=== PATIENT | female | born 1990 | race African-American/Black ===

== ENCOUNTER 2018-12-06 20:17 | Inpatient (IN) ==
--- NOTE | 2018-12-06 20:41 | PROVIDER DOCUMENTATION ---
HPI-General Adult - General Chief Complaint: Abdominal Pain Stated Complaint: PREG/CRAMPING Time Seen by Provider: 12/06/18 20:31 Source: patient Allergies/Adverse Reactions: Patient Allergies Allergy/AdvReac Type Severity Reaction Status Date / Time No Known Allergies Allergy Verified 11/27/18 08:14 Home Medications: Home Medication List Medication Instructions Recorded Confirmed Last Taken Type NK [No Home Medications] 11/27/18 11/27/18 Unknown History - History of Present Illness -Gen Adult Nature of Presenting Problems: Pt. is 28 yof that presents with abd cramping and reports she had a positive pregnacy test 3 weeks ago. Pt. reports having a tubal 6 years ago. Pt. states she has some nausea and denies any other complaints. Location of Pain/Injury: reports: pelvis. denies: none, head, face, mouth, neck, chest, upper extremity, hand(s), abdomen, back, genitalia, lower e xtremity, feet, upper body, lower body, generalized, other Pain Radiation: reports: no radiation. denies: arm(s), back, buttocks, chest, epigastric, feet, groin, jaw, flank (L), legs (lower), LLQ, LUQ, neck, periumbilical, flank (R), RLQ, RUQ, shoulder(s), scapula, scrotal, sternal notch, suprapubic, legs (upper), urethral, vaginal, other Quality of Pain: reports: cramping. denies: burning, pressure, throbbing Severity: reports: mild. denies: moderate, severe Onset/Duration: reports: gradual, 24 hours ago Timing: reports: still present. denies: gone now, changing over time, getting worse Context/Activities at Onset: reports: none. denies: light activity, moderate activity, vigorous activity, recent emotional stress, recent physical stress, recent trauma history, possible bad food, cold exposure, eating, out of country travel, rest, sleep, sexual activity, other Modifying Factors: improves with: nothing. worse with: analgesics, antacids, breathing, cold/heat therapy, coughing, defecating, eating, exercise, immobilization, lying down, massage, movement, other medication, palpation, rest, urinating, vomiting, other Associated Symptoms: reports: nausea, other (abd pain). denies: denies symptoms, anxiety, arm pain, back/neck pain, chest pain, constipation, cough, diaphoresis, diarrhea, dizziness, EENT symptoms, fatigue, fever/chills, genitourinary problems, headaches, heartburn, joint pain, loss of appetite, malaise, muscle aches, sinus congestion/drainage, rash, seizure, shortness of breath, sensory/motor loss, pain with inspiration, swelling/mass in abdomen, syncope, vomiting, weakness, trouble walking Similar Symptoms Previously?: Yes Recently seen or treated by another doctor?: No Review of Systems - Adult - REVIEW OF SYSTEMS - ADULT Constitutional: reports: no symptoms reported Eyes: reports: no symptoms reported Ears, Nose, Mouth & Throat: reports: no symptoms reported Cardiovascular: reports: no symptoms reported Respiratory: reports: no symptoms reported Gastrointestinal: reports: see HPI, abdominal pain, nausea. denies: hematemesis, diarrhea, difficulty swallowing, vomiting Genitourinary: reports: no symptoms reported. denies: see HPI, dysuria, discharge, frequency, flank pain, frequent UTI's, hematuria, hesitency, incontinence, urinary retention, urgency, other Musculoskeletal: reports: no symptoms reported Integumentary: reports: no symptoms reported Neurological: reports: no symptoms reported Psychiatric: reports: no symptoms reported Past History - Adult - PAST MEDICAL HISTORY-ADULT Review of Records: reports: Old Records Reviewed, Nursing Assessment Review, Medications Reviewed, Social history reviewed & non-contributory. Major Childhood Illnesses: reports: denies history - PRIOR SURGERIES/PROCEDURES Surgical/Procedure History: reports: BTL - IMMUNIZATION STATUS Childhood Immunizations: See Nurse Assessment Flu Vaccine: See Nurse Assessment - FAMILY HISTORY Family History: reviewed, not pertinent - SOCIAL HISTORY Smoking: denies Physical Exam-General - PHYSICAL EXAM-ADULT Initial Vital Signs Reviewed: Yes - CONSTITUTIONAL General Appearance: alert, mild distress. negative: anxious, obtunded, combative - EYES Eyes: PERRL/EOMI, pink conjunctivae - HEAD, EARS, NOSE, MOUTH & THROAT HENMT: normocephalic/atraumatic, moist mucous membranes - NECK Neck: non-tender, full range of motion, supple, normal inspection - RESPIRATORY Respiratory: lungs clear, normal breath sounds - CARDIOVASCULAR Cardiovascular: normal peripheral pulses, regular rate, rhythm - GASTROINTESTINAL (ABDOMEN) Abdominal Exam: normal bowel sounds, soft, tenderness. negative: distended, guarding, rigid, rebound - LYMPHATIC Lymphatic: no adenopathy - MUSCULOSKELETAL Back Exam: normal inspection, no CVA tenderness Extremity: normal range of motion, non-tender, normal gait, normal inspection Peripheral Pulses: radial (R): 2+, radial (L): 2+ - SKIN Integumentary: normal color, normal turgor, warm/dry. negative: cyanosis, mottled, zoster-like rash - NEUROLOGIC Neurologic: grossly normal, no motor/sensory deficits - PSYCHIATRIC Psych/Mental Status: normal mood/affect, normal thought content, normal thought process, oriented x 3. negative: anxious, paranoid, tearful Progress - PLAN OF CARE/RESULTS Progress/Plan/Lab Results: Vital Signs - 8 hr 12/06/18 20:29 Temperature 99.1 F Pulse Rate 71 Respiratory Rate 20 Blood Pressure 116/73 O2 Sat by Pulse Oximetry 100 Orders Category Date Time Status ED: Urine Bedside ORDERED Care 12/06/18 20:32 Active CBC WITH ELECTRONIC DIFF [HEME] Stat Lab 12/06/18 20:31 Uncollected QUANT TEST Stat Lab 12/06/18 20:31 Uncollected RHOGAM WORKUP [BBK] Stat Lab 12/06/18 20:32 Uncollected URINALYSIS W/POSS RFLX CULT [URINALYSIS] Stat Lab 12/06/18 20:32 Uncollected Laboratory Tests 12/06/18 12/06/18 12/06/18 21:18 21:32 21:32 WBC 10.98 H RBC 4.70 Hgb 8.5 L Hct 28.4 L MCV 60.4 L MCH 18.1 L MCHC 29.9 L RDW Std Deviation 18.6 H Plt Count 265 MPV Not Reportable Immature Gran % (Auto) 0.2 Neut % (Auto) 77.7 H Lymph % (Auto) 16.8 L Baldwin % (Auto) 4.5 Eos % (Auto) 0.4 Baso % (Auto) 0.4 Immature Gran # (Auto) 0.02 Neut # (Auto) 8.54 H Lymph # (Auto) 1.85 Baldwin # (Auto) 0.49 Eos # (Auto) 0.04 Baso # (Auto) 0.04 Ser , Semi-Qnt 3799.0 Urine Source CLEAN CATCH Urine Color YELLOW Urine Turbidity HAZY Urine pH 6.5 Ur Specific [place] 1.038 Urine Protein 30 A Ur Glucose (Stick) NEGATIVE Ur Ketones (Stick) 10 A Urine Blood NEGATIVE Urine Nitrite NEGATIVE Urine Bilirubin NEGATIVE Urobilinogen Dipstick 2 A Urine Leukocytes SMALL A Urine WBC (Auto) TNTC A Urine RBC (Auto) <10 U Epithel Cells (Auto) <10 Urine Bacteria (Auto) 1+ Dr. Archibald at bedside for evaluation. Result Diagrams: 12/06/18 21:32 - CONSULTS/PCP/HOSPITALIST Notification #1 *Consult/PCP/Hospitalist*: Dr. Archibald Time Discussed: 23:02 Reason/Comments: Consult Consult Disposition: Will see in ED (After evaluating the patient, Dr. Archibald will admit and take the patient to the OR in the morning.) Departure - Departure Date of Disposition Decision: 12/07/18 Time of Disposition Decision: 00:01 DIAGNOSIS: of unknown anatomic location Disposition: ADMITTED INPATIENT 09 Certified Medical Emergency: Emergent Condition: Serious Referrals and Follow-Ups: None,PCP [Primary Care Provider] - - Critical Care Note This patient required my direct & personal management of CC.: No Attestation - Physician/ [place] Attestation Patient care was provided by Advanced Practice Provider:: Yes Advanced Practice Provider:: Maia Espinoza Advanced Practice Provider documentation review:: The Mid-level provider documentation, treatment plan and medical decision making was reviewed by the physician who agrees with all treatment and medical decision making by the [facility]. The physician spent face to face time with patient:: No Advanced Practice Provider documentation review:: Supervising physician onsite and consulted in the evaluation and care of this patient. The physician did not have a face to face encounter with the patient.
[2018-12-06 21:36] LABS: URINE SOURCE CLEAN CATCH
[2018-12-06 22:12] LABS: BILIRUBIN URINE NEGATIVE (NEGATIVE); BLOOD URINE NEGATIVE (NEGATIVE); COLOR YELLOW; GLUCOSE URINE NEGATIVE (NEGATIVE); KETONE URINE 10 mg/dL (NEGATIVE); LEUKOCYTES URINE SMALL (NEGATIVE); NITRITE URINE NEGATIVE (NEGATIVE); PH URINE 6.5; PROTEIN URINE 30 mg/dL (NEGATIVE); SP GRAVITY URINE 1.038; TURBIDITY URINE HAZY (CLEAR); UROBILINOGEN URINE 2 mg/dL (NORMAL)
[2018-12-06 22:28] LABS: BASO# 0.04 X1000 (0.0-0.2); BASO% 0.4 % (0.0-0.8); EOS# 0.04 X1000 (0.0-0.7); EOS% 0.4 % (0.0-10.0); HEMATOCRIT 28.4 % (37.0-47.0); HEMOGLOBIN 8.5 g/dL (12.0-16.0); IMM GRAN# 0.02 X1000 (0.0-0.04); IMM GRAN% 0.2 % (0.0-0.5); LYMPH# 1.85 X1000 (1.2-3.4); LYMPH% 16.8 % (20.5-51.1); MCH 18.1 PG (27-31); MCHC 29.9 g/dL (33-37); MCV 60.4 FL (81-99); MONO# 0.49 X1000 (0.11-0.59); MONO% 4.5 % (1.7-9.3); NEUT# 8.54 X1000 (1.4-6.5); NEUT% 77.7 % (42.2-75.2); PLT 265 X1000 (130-400); RDW 18.6 % (11.5-14.5); WBC 10.98 X1000 (4.8-10.8)
[2018-12-06 22:29] LABS: UR EPITHELIAL CELLS <10 /HPF (<10); URINE BACTERIA 1+ /HPF; URINE RBC <10 /HPF (<10); URINE WBC TNTC /HPF (<10)
[2018-12-07] MEDS ORDERED: ZOFRAN IV PRN ×2 (00:02→00:27)
[2018-12-07] MEDS ORDERED: NS 1,000 ML IV ONE (00:02)
[2018-12-07] MEDS ORDERED: MORPHINE IV PRN (00:02)
[2018-12-07] MEDS ORDERED: TYLENOL PO PRN (00:35)
--- NOTE | 2018-12-07 00:51 | HISTORY AND PHYSICAL ---
CHIEF COMPLAINT: Acute lower abdominal midline pain. HISTORY OF PRESENT ILLNESS: A 28-year-old G5, P3-0-1-3 at 5 weeks and 5 days by LMP (10/27/2018), presented to the ED with acute lower abdominal cramping x1 day. The patient reports she had severe cramping that persisted during the daytime. The cramping was described as sharp and nonradiating. The patient reports of positional change as an alleviating factor. The patient reports her pain worsens with prolonged standing. The patient also had associated nausea and vomiting x2. episodes today. Patient denied of vaginal bleeding. The patient has a history of a prior tubal ligation. The patient was seen in the ED on 11/27/2018 due to a positive test. The patient denied of any fever, chills, shortness of breath, or chest pain. The patient denied of any dysuria, hematuria, or vaginal bleeding. The patient denied of any constipation, diarrhea, hematochezia, or melena. PAST SURGERY HISTORY: Denied. PAST SURGICAL HISTORY: bilateral tubal ligation. OBSTETRICAL HISTORY: G5, P3-0-1-3. History of a miscarriage/prior stillbirth and 3 vaginal deliveries. GYNECOLOGIC HISTORY: Regular menses. Denied of STDs or HIV. Reports of 1 abnormal Pap smear, but no prior LEEP or cryotherapy. Last Pap smear reported to be last year and unremarkable. MEDICATIONS: Denied. ALLERGIES: No known drug allergies. SOCIAL HISTORY: Denied of any tobacco, alcohol, or illicit drug. FAMILY HISTORY: Denied. REVIEW OF SYSTEMS: Positive for abdominal pain, nausea and vomiting. PHYSICAL EXAMINATION: VITAL SIGNS: Temperature 99.1 degrees, pulse 71, respirations 20, blood pressure 116/73, SpO2 of 100% on room air. Weight 76.2 kg, height 5 feet 2 inches. GENERAL: No apparent distress. Alert and oriented x3. CARDIOVASCULAR: Regular rate and rhythm. PULMONARY: Clear to auscultation bilaterally. No rhonchi, wheezing or rales. ABDOMEN: Soft, some mild to moderate midline lower abdominal tenderness to palpation. No rebound tenderness. No guarding. Active bowel sounds EXTREMITIES: No lower extremity tenderness to palpation. PELVIC: Normal female external genitalia. No blood noted in vaginal vault. Cervix grossly normal appearing and closed. No adnexal tenderness to palpation. Positive cervical motion tenderness. A posterior mass or nodule palpated just inferior to the cervix, possibly posterior cul-de-sac. LABORATORY: On 12/06/2018: white blood cell count 10.98, hemoglobin 8.5, hematocrit 28.4, platelet 265,000. HCG quantitative 3799. On 11/27/2018: hemoglobin 8.9, hematocrit 30.1, platelet 257,000. HCG quant 121. IMAGING: Pelvic ultrasound, anteverted uterus. Uterus measures 9.7 x 0.2 x 6.7 cm. No discrete mass. Endometrium measures 6 mm. No intrauterine gestational sac or free fluid seen. No intrauterine or ectopic . ASSESSMENT AND PLAN: A 28-year-old G5, P3-0-1-3 at 5 weeks and 5 days by last menstrual period with: 1. of unknown location. - Given the patient's history of present illness of acute abdominal pain with a quantitative hCG of approximately 3800 (above the conservative discriminatory zone), increased from 11/27/2018, and no intrauterine seen on ultrasound, there is suspicion that the patient has an ectopic , especially considering patient had a prior tubal ligation. - The ultrasound imaging was reviewed by myself personally with no definitive findings of the location of the current . It may be possible that patient may have a heterotopic , but this is a rare finding. Given patient's cervical motion tenderness and what felt to be a small mass just inferior to the cervix, there is a possibility that the patient may have a cervical ectopic or an ectopic in the posterior cul-de-sac. - Given that patient had failed tubal ligation and patient being anemic with a hemoglobin of 8.5 and hematocrit of 28.4 (although not significantly changed since the patient was seen on 11/27/2018), I discussed with patient recommendation for surgical management via a diagnostic laparoscopy with possible bilateral salpingectomy. I discussed with patient that if there is no ectopic seen on laparoscopy, then we will consider using methotrexate, especially if suspecting a cervical ectopic (vs continued observation) . I discussed the risks and benefits of methotrexate use, need for frequent hcg lab draws, and reliable transportation. - Risks and benefits of a diagnostic laparoscopy discussed with patient in depth including, but not limited to, bleeding, infection, injury to surrounding organs, postoperative pain, risk of hysterectomy, disability and/or . The patient expressed understanding. All questions answered. The patient desires to proceed with the recommendation. - Will keep the patient NPO and proceed with urgent laparoscopy. This will be performed by the dayshift [facility]. 2. Anemia. - Will hold 2 units of packed red blood cells. 3. Rh positive. No RhoGAM indicated. [facility]
[2018-12-07 00:53] LABS: AGAP 10; ALB/GLOB RATIO 1.1; ALBUMIN 4.2 g/dL (3.5-5.0); ALKALINE PHOSPHATASE 64 U/L (32-104); BUN 12 mg/dL (8-22); CALCIUM 9.1 mg/dL (8.8-10.2); CHLORIDE 104 mmol/L (98-107); COSMO 276; CREATININE 0.7 mg/dL (0.5-0.9); ESTIMATED GFR > 60; GLUCOSE 109 mg/dL (70-104); GOT 26 U/L (10-30); GPT 20 U/L (10-36); POTASSIUM 4.1 mmol/L (3.5-5.1); SODIUM 138 mmol/L (136-145); TCO2 24 mmol/L (25-35); TOTAL BILIRUBIN 0.15 mg/dL (0.20-1.00)
--- NOTE | 2018-12-07 07:28 | Diag Imaging Result Doc PS360 ---
EXAM: US PELVIC NON-OB COMPLETE 12/06/2018 HISTORY: abd pain with TECHNIQUE: Transabdominal COMMENT: The uterus measures 9.7 x 8.2 x 6.7 cm. There is a 6 mm endometrial stripe. There is free fluid in the cul-de-sac. The uterine fundus is somewhat bulky and inhomogeneous without discrete masses. This appearance was also present on 11/27/2018. There are no earlier studies. The ovaries are not enlarged. There is color Doppler flow in both ovaries. IMPRESSION: No evidence of intrauterine gestation. Free pelvic fluid. Although no ectopic gestational sac is identified, the possibility of ectopic cannot be excluded and correlation with serial beta-hCG levels is recommended. Electronically signed by Mat Morales 12/07/2018 7:26 AM
[2018-12-07] MEDS ORDERED: DIPRIVAN 1% ONE ×2 (09:18→10:34)
[2018-12-07] MEDS ORDERED: NORCURON ONE (09:20)
[2018-12-07] MEDS ORDERED: STERILE WATER INJ. ONE (09:20)
[2018-12-07] MEDS ORDERED: VERSED ONE (10:33)
[2018-12-07] MEDS ORDERED: FENTANYL ONE (10:33)
[2018-12-07] MEDS ORDERED: KEFZOL 1 GM/D5W 1 GM/50 ML IVPB ONE (10:57)
[2018-12-07] MEDS ORDERED: LR 1,000 ML ONE (11:51)
[2018-12-07] MEDS ORDERED: DECADRON ONE (12:15)
[2018-12-07] MEDS ORDERED: NEOSTIGMINE ONE (12:15)
[2018-12-07] MEDS ORDERED: ROBINUL ONE (12:15)
[2018-12-07] MEDS ORDERED: ZOFRAN ONE (12:15)
[2018-12-07 12:23] LABS: URINE SOURCE CATH
[2018-12-07 12:26] LABS: BILIRUBIN URINE NEGATIVE (NEGATIVE); BLOOD URINE NEGATIVE (NEGATIVE); CLARITY CLEAR (CLEAR); COLOR YELLOW; GLUCOSE URINE NEGATIVE (NEGATIVE); KETONE URINE 40 mg/dL (NEGATIVE); LEUKOCYTES URINE NEGATIVE (NEGATIVE); NITRITE URINE NEGATIVE (NEGATIVE); PROTEIN URINE NEGATIVE (NEGATIVE); UROBILINOGEN URINE 0.2 EU/dL (0.2-1.0)
[2018-12-07 12:32] LABS: URINE RBC <10 /HPF (<10); URINE WBC <10 /HPF (<10)
[2018-12-07] MEDS ORDERED: NORCO-10 PO PRN (12:37)
[2018-12-07] MEDS ORDERED: PHENERGAN IM PRN (12:37)
[2018-12-07] MEDS ORDERED: MORPHINE IM PRN (12:37)
[2018-12-07] MEDS ORDERED: NORCO-5 PO PRN (12:37)
[2018-12-07] MEDS ORDERED: DEMEROL ONE (12:41)
[2018-12-07] MEDS ORDERED: LR 1,000 ML IV SCH (12:45)
[2018-12-07] MEDS: DILAUDID ONE ×2 (12:47→12:58)
[2018-12-07 16:27] LABS: BASO# 0.01 X1000 (0.0-0.2); BASO% 0.1 % (0.0-0.8); HEMATOCRIT 28.6 % (37.0-47.0); HEMOGLOBIN 8.6 g/dL (12.0-16.0); IMM GRAN# 0.02 X1000 (0.0-0.04); IMM GRAN% 0.2 % (0.0-0.5); LYMPH% 7.6 % (20.5-51.1); MCH 18.5 PG (27-31); MCHC 30.1 g/dL (33-37); MCV 61.4 FL (81-99); MONO# 0.15 X1000 (0.11-0.59); MONO% 1.4 % (1.7-9.3); NEUT# 9.53 X1000 (1.4-6.5); NEUT% 90.7 % (42.2-75.2); PLT 238 X1000 (130-400); RBC 4.66 XMIL (4.2-5.4); RDW 18.7 % (11.5-14.5); WBC 10.51 X1000 (4.8-10.8)
[2018-12-07 16:45] LABS: HYPOCHROM 1+; LYMPHS 9 % (21-51); MICROCYTOSIS 1+; MONO 1 % (1-9); SEGS 90 % (42-75)
[2018-12-07] MEDS: TORADOL IV SCH (20:11)
[2018-12-07] MEDS ORDERED: PERIDEX MT SCH (21:00)
[2018-12-08] MEDS: TORADOL IV SCH (03:50)
[2018-12-08 07:26] VITALS: BP 103/63
--- NOTE | 2018-12-08 08:33 | OPERATIVE NOTE ---
PROCEDURE DATE: 12/07/2018 PREOPERATIVE DIAGNOSIS: Ectopic . POSTOPERATIVE DIAGNOSES: 1. Ectopic . 2. Hemoperitoneum. PROCEDURE: Laparoscopy with right salpingectomy and evacuation of hemoperitoneum. SURGEON: Jos Martin III, MD ASSIST: ORT. ANESTHESIA: General, Dr. Yarbrough. FINDINGS: Hemoperitoneum and a dilated and hemorrhagic right fallopian tube. COMPLICATIONS: None. ESTIMATED BLOOD LOSS: 250 mL, that includes old blood. SPECIMENS REMOVED: Right fallopian tube. DRAINS: None. COUNTS: All counts were correct x3. INDICATIONS: Patient is a 28-year-old black female, G5, P4-0-1-3, who was seen in the emergency room and noted to have a quantitative beta HCG that was elevated with free fluid noted in the pelvis, along with the presentation of abdominal pain. Hemoglobin had dropped from 8.9 on 11/27/2018 to 8.5 on 12/06/2018, and on ultrasound study, there was nothing noted inside the uterus. The patient has had a previous tubal ligation and highly suspicious for ectopic . Patient counseled about the risks of surgery, including bleeding, infection, and bowel or bladder injury. DESCRIPTION OF PROCEDURE: Patient was taken to the OR and placed in supine position. General anesthesia was employed, then patient was placed in dorsal lithotomy position using low Alexis stirrups. Patient was then prepped and draped in a sterile fashion with placement of Cadena catheter area. An infraumbilical incision was made using a #11 scalpel, 5 mm in a vertical fashion. A Veress needle was then placed into the abdominal cavity. Water drop test showed good flow and then CO2 gas was used to insufflate the abdomen. Opening pressure was 5 mmHg and 2.1 L of CO2 gas were used to insufflate the abdomen. Veress needle was removed and then a 5 mm trocar was then placed and confirmation of placement was made using laparoscopic camera. Then, a suprapubic incision was made in the midline in a transverse fashion with a #11 scalpel, roughly 5 mm, and then under laparoscopic visualization, a 5 mm trocar was placed. Inspection of the lower abdomen showed blood in the pelvis and lots of clots noted. For placement of another 11 mm trocar on the left side, incision was made on the left side with a #11 blade in transverse fashion and then placement of trocar was under laparoscopic visualization. Then, evacuation of the hemoperitoneum was accomplished with irrigation and suction. Inspection of the fallopian tube showed that there was a portion of the fallopian tube on the left side that was normal, but it appeared scarred from previous tubal ligation. On the right side, there were blood clots and a dilated right fallopian tube that was also hemorrhagic. At this point in time, LigaSure was used to help dissect the distal part of the right fallopian tube, and this was accomplished without difficulty and then the Endobag was placed and the tubal segment was removed after being placed in the Endobag. Continued irrigation to evaluate any bleeding that may be remaining, showed good hemostasis and removal of the rest of the blood clots in the posterior cul-de-sac. Once this was accomplished, then the 11 mm trocar was removed and closure was accomplished with 0 Vicryl in a transfixing stitch on the fascia. Then, the CO2 gas was allowed to escape from the other trocar sites and then the skin incisions were closed using 4-0 Vicryl in subcuticular fashion. The patient tolerated the procedure well and was taken to the recovery room in stable condition. We will check a hemoglobin and hematocrit later today to see whether the patient needs transfusion. The patient had good urine output in the operating room and Ancef 1 g was given perioperatively. cc: Jos Martin III, MD
--- NOTE | 2018-12-08 14:35 | DISCHARGE SUMMARY ---
ADMISSION DATE: 12/06/2018 DISCHARGE DATE: 12/08/2018 ADMISSION DIAGNOSIS: A 28-year-old female G5, P3, with a previous tubal ligation and of unknown location. FINAL DIAGNOSES: 1. 28-year-old female G5, P3, with a previous tubal ligation and of unknown location. 2. Right tubal . PROCEDURES: Laparoscopy with evacuation of hemoperitoneum and right salpingectomy. BRIEF HISTORY: The patient is a 28-year-old black female, G5, P3, A1 with a history of previous tubal ligation, presents with cramping pain for the past 2 days and she also has nausea, vomiting. When she was in the emergency room, quantitative beta HCG was elevated at over 3000 and ultrasound failed to see any intrauterine evidence of . The patient also was noted to have some free fluid in the cul-de-sac. PAST SURGICAL HISTORY: Previous tubal ligation. PAST MEDICAL HISTORY: Unremarkable. OB HISTORY: A1. History of miscarriage and 3 vaginal deliveries. [facility]GE [employer]TAIN HISTORY: Normal menses. Denies STDs, had one abnormal Pap, but her last Pap smear was a year ago and was normal. MEDICATIONS: None. ALLERGIES: No known drug allergies. SOCIAL HISTORY: Tobacco use, none. Alcohol use, none. FAMILY HISTORY: Unremarkable. REVIEW OF SYSTEMS: Positive for abdominal pain, nausea, vomiting. PHYSICAL EXAMINATION: Vital Signs: Temp 99.1 degrees, pulse of 71, respirations 20, blood pressure 116/73, height 5 feet 2 inches, weight 76.2 kg. General: No apparent distress. Alert and oriented x3. Cardiovascular: Regular rate and rhythm. Pulmonary: Clear to auscultation. Abdomen: Soft. Mild to moderate midline lower abdominal tenderness to palpation. Active bowel sounds were noted. Extremities: No lower extremity tenderness to palpation. Pelvic: Normal female external genitalia. No blood in the vaginal vault. Pelvic: Cervix was grossly normal. No adnexal tenderness to palpation. There was positive cervical motion tenderness positive as well as mass-effect underneath the cervix in the posterior cul-de-sac. On 12/06, she had hemoglobin that was 8.5, hematocrit 28.4, and quantitative beta hCG value was 3799, compared to a quant that was 121 on 11/27/2018. Pelvic ultrasound showed a uterus with normal endometrium and it did appear upon evaluation that there was free fluid in the pelvis. ASSESSMENT AND PLAN: 28-year-old female A1 with of unknown location, highly suspicious for ectopic . The patient was scheduled for a laparoscopy for evaluation and surgery did discover right fallopian tube was dilated and hemorrhagic and this was dissected and removed as well as the hemoperitoneum that was present was also evacuated. The patient tolerated the procedure well, was taken to recovery room in stable condition. POST OPERATIVE COURSE: Patient was advanced on her diet slowly. She was able to ambulate, had stable vital signs and was afebrile and postop hemoglobin was 8.6 and hematocrit was 28.6. I felt the patient could be discharged home at this time on hospital day #3, postop day #1. The patient given instructions on no heavy lifting for one week. We will give her a note for work. The patient was given instructions to follow up in 1 week or to call for any problems before then. The patient also given prescription for [place] 10, Phenergan 25 mg and iron sulfate 325 mg. cc: Jos Martin III, MD
== END 2018-12-08 10:04 | disposition home or self-care (01) | DRG 819 ==
LOC: ED 20:17 → 4N 12-07 00:31
PROVIDERS: ADMIT Obstetrics & Gynecology Obstetrics; ATTEND Obstetrics & Gynecology Obstetrics